=== PATIENT | female | born 1985 | race Caucasian/White ===

== ENCOUNTER 2024-02-09 13:08 | Emergency (ER) | payer OTHER ==
[2024-02-09 13:23] VITALS: BP 140/90; O2SAT 100
--- NOTE | 2024-02-09 13:30 | ED Physician Documentation ---
PD HPI BACK PAIN - Stated complaint Stated Complaint: NECK PX - Chief complaint Chief Complaint: Back Pain - History obtained from History obtained from: Patient - Additional information Additional information: She developed atraumatic upper back pain about 5 days ago. It is just below the cervicothoracic junction. It is worse when she turns her neck or bends her neck. Improved somewhat by heat. Minimal relief with ibuprofen. There is radiation of the pain towards the shoulder but not to the shoulder on the right. No chest pain or trouble breathing. 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 : None HEENT: None Psych: Depression, Anxiety Musculoskeletal: None - Past Surgical History Past Surgical History: No - Present Medications Home Medications: Ambulatory Orders Medication Instructions Recorded Confirmed Cyclobenzaprine [Flexeril] 10 mg PO TID PRN #20 tablet 02/09/24 - Allergies Allergies/Adverse Reactions: Allergies Allergy/AdvReac Type Severity Reaction Status Date / Time ondansetron [From Zofran] Allergy Hives Verified 02/09/24 13:14 - Social History Does the pt smoke?: No Smoking Status: Never smoker Does the pt drink ETOH?: Yes Does the pt have substance abuse?: No - Immunizations Immunizations are current?: Yes - POLST Patient has POLST: No PD ED PE NORMAL - Vitals Vital signs reviewed: Yes - General General: Alert and oriented X 3, No acute distress - HEENT HEENT: PERRL, EOMI - Neck Neck: Other (Flexion extension and rotation of the neck is all uncomfortable. She does have some tenderness around T1/T2 and muscular tenderness to the right parathoracic muscles at that level.) - Neuro Neuro: Alert and oriented X 3, Normal speech, Other (Normal equal bilateral darklight inspector strength, flexion extension of the wrist, interosseous strength, and thumb extension.) Eye Opening: Spontaneous Motor: Obeys Commands Verbal: Oriented GCS Score: 15 - Psych Psych: Normal mood, Normal affect Results - Vitals Vitals: Vital Signs - 24 hr 02/09/24 13:14 Temperature 36.8 C Heart Rate 88 Respiratory 16 Rate Blood Pressure 140/90 H O2 Saturation 100 Oxygen O2 Source Room air PD Medical Decision Making - ED course ED course: She presents with an upper back spasm that has failed conservative treatment with ibuprofen, will add a muscle relaxer. Departure - Departure Disposition: 01 Home, Self Care Clinical Impression: Back spasm Condition: Good Record reviewed to determine appropriate education?: Yes Instructions: ED Spasm Back No Trauma Prescriptions: Cyclobenzaprine [Flexeril] 10 mg PO TID PRN #20 tablet PRN Reason: Spasms Comments: I sent your prescriptions electronically to the [facility] in [place]. You can continue taking ibuprofen along with the muscle relaxer for this. You can continue heat and I would do some gentle stretching 2. Call your doctor to arrange a follow-up appointment, make the next available appointment. In the interim, return anytime if worse or if new symptoms develop.
== END 2024-02-09 13:43 | disposition home or self-care (01) ==
LOC: ED 13:08
DX: M62.830 Muscle spasm of back (principal); I10 Essential (primary) hypertension
CPT/HCPCS: 99282; 99283